=== PATIENT | male | born 1980 | race Native Hawaiian/Other Pacific Islander ===

== ENCOUNTER 2020-06-12 15:23 | Outpatient (CLI) | payer OTHER | END 2020-06-12 19:13 | disposition home or self-care (01) | LOC: RESP 15:23 | DX: R07.89 Other chest pain (principal); I10 Essential (primary) hypertension; I34.0 Nonrheumatic mitral (valve) insufficiency; I07.1 Rheumatic tricuspid insufficiency; R68.89 Other general symptoms and signs ==

== ENCOUNTER 2020-06-13 08:41 | Outpatient (CLI) | payer OTHER ==
[~2020-06-13] VITALS: Ht 180.3 cm; Wt 124.7 kg
== END 2020-06-13 20:22 | disposition home or self-care (01) ==
LOC: LABW 08:41 → NM 08:41
PROVIDERS: Specialist
DX: E78.2 Mixed hyperlipidemia (principal); I10 Essential (primary) hypertension; R07.89 Other chest pain; I34.0 Nonrheumatic mitral (valve) insufficiency; I07.1 Rheumatic tricuspid insufficiency; R68.89 Other general symptoms and signs
CPT/HCPCS: 36415; 80061; 80076; A9500; J2785

== ENCOUNTER 2020-06-19 13:43 | Outpatient (CLI) | payer OTHER ==
[2020-06-19 14:13] LABS: PLATELET COUNT 322 K/uL (142-355)
[2020-06-19 14:15] LABS: POTASSIUM 4.3 mmol/L (3.6-5.2)
== END 2020-06-19 23:36 | disposition home or self-care (01) ==
LOC: LABW 13:43
PROVIDERS: Specialist
DX: R07.2 Precordial pain (principal); R93.1 Abnormal findings on diagnostic imaging of heart and coronary circulation
CPT/HCPCS: 36415; 80053; 85027

== ENCOUNTER 2021-02-21 10:30 | Outpatient (CLI) | payer BC ==
[2021-02-21 11:06] LABS: PLATELET COUNT 312 K/uL (142-355)
[2021-02-21 11:18] LABS: POTASSIUM 3.9 mmol/L (3.6-5.2)
== END 2021-02-21 20:53 | disposition home or self-care (01) ==
LOC: LABW 10:30
PROVIDERS: ATTEND Internal Medicine Gastroenterology
DX: R10.13 Epigastric pain (principal)
CPT/HCPCS: 36415; 80053; 82150; 82784; 83516; 83690; 85027; 86140

== ENCOUNTER 2021-02-27 09:33 | Outpatient (CLI) | payer BC | END 2021-02-27 22:41 | disposition home or self-care (01) | LOC: US 09:33 | PROVIDERS: ATTEND Internal Medicine Gastroenterology | DX: R10.13 Epigastric pain (principal) ==